=== PATIENT | female | born 1975 | race Hispanic/Latino ===

== ENCOUNTER 2019-01-07 19:05 | Emergency (ER) | payer OTHER ==
[2019-01-07 19:05] VITALS: BMI 21.9
[2019-01-07 20:51] VITALS: RESP 18
--- NOTE | 2019-01-07 22:40 | ED PDOC ---
HPI: Abdomen Time Seen by Provider: 01/07/19 21:57 Chief Complaint (Nursing): Abdominal Pain Chief Complaint (Provider): Abdominal Pain History Per: Patient History/Exam Limitations: no limitations Onset/Duration Of Symptoms: Days (2) Current Symptoms Are (Timing): Still Present Associated Symptoms: denies: Fever Additional Complaint(s): 43 year old female presents to the ED for an evaluation of right flank pain and abdominal pain onset for 2 days. Patient reports the pain is located on the right lower side of the stomach and today the pain radiated to her right flank. Previously, patient had a UTI with dysuria. However, she currently reports of dark urine only. Otherwise, patient denies fever, chills, nausea, vomiting or diarrhea. PMD: no family provider Abnormal Vaginal Bleeding: No Past Medical History Reviewed: Historical Data, Nursing Documentation, Vital Signs Vital Signs: Last Vital Signs Temp 98.8 F 01/07/19 20:48 Pulse 73 01/07/19 20:48 Resp 18 01/07/19 20:48 BP 121/75 01/07/19 20:48 Pulse Ox 98 01/07/19 20:48 Primary Care Provider: Epi Torres - Medical History PMH: Anemia Denies: Chronic Kidney Disease - Surgical History Surgical History: Endoscopy - Family History Family History: States: Unknown Family Hx - Social History Current smoker - smoking cessation education provided: No Alcohol: None Drugs: Denies - Home Medications Home Medications: Ambulatory Orders Medication Instructions Recorded Esomeprazole Magnesium [Nexium] 20 mg PO DAILY 08/07/17 Phenazopyridine HCl [Pyridium] 100 mg PO TID #6 tab 01/07/19 Sulfamethoxazole/Trimethoprim 1 tab PO BID #20 tab 01/07/19 [Bactrim DS 800 mg-160 mg] - Allergies Allergies/Adverse Reactions: Allergies Allergy/AdvReac Type Severity Reaction Status Date / Time No Known Allergies Allergy Verified 01/07/19 20:48 Review of Systems ROS Statement: Except As Marked, All Systems Reviewed And Found Negative Constitutional: Negative for: Fever, Chills Gastrointestinal: Positive for: Abdominal Pain. Negative for: Nausea, Vomiting, Diarrhea Genitourinary Female: Negative for: Dysuria Physical Exam - Reviewed Nursing Documentation Reviewed: Yes Vital Signs Reviewed: Yes - Physical Exam Appears: Positive for: Well, Non-toxic, No Acute Distress Head Exam: Positive for: ATRAUMATIC, NORMAL INSPECTION, NORMOCEPHALIC Skin: Positive for: Normal Color, Warm, Dry. Negative for: Rash Eye Exam: Positive for: EOMI, Normal appearance, PERRL ENT: Positive for: Normal ENT Inspection Neck: Positive for: Normal, Painless ROM Cardiovascular/Chest: Positive for: Regular Rate, Rhythm. Negative for: Murmur Respiratory: Positive for: Normal Breath Sounds. Negative for: Decreased Breath Sounds, Wheezing, Respiratory Distress Gastrointestinal/Abdominal: Positive for: Normal Exam, Soft. Negative for: Tenderness, Guarding, Rebound Back: Positive for: R CVA Tenderness (mild ). Negative for: L CVA Tenderness Extremity: Positive for: Normal ROM. Negative for: Tenderness, Pedal Edema, Deformity Neurological/Psych: Positive for: Awake, Alert, Normal Tone, Oriented (x3). Negative for: Motor/Sensory Deficits - ECG O2 Sat by Pulse Oximetry: 98 (RA) Pulse Ox Interpretation: Normal Medical Decision Making Medical Decision Making: Time: 2206 Impression: 43yo female with right flank pain Plan: Urine ED urine dipstick UA 23:33 Urine dip is indicative of a urinary tract infection. Patient was given an initial dose of Bactrim in the ED. She is stable and will be discharged with prescriptions for Bactrim and Pyridium. Return precautions provided. Scribe Attestation: Documented by Dejah Bell, acting as a scribe for Chandu Oneil MD Provider Scribe Attestation: All medical record entries made by the Scribe were at my direction and personally dictated by me. I have reviewed the chart and agree that the record accurately reflects my personal performance of the history, physical exam, medical decision making, and the department course for this patient. I have also personally directed, reviewed, and agree with the discharge instructions and disposition. Disposition - Clinical Impression Clinical Impression: UTI (urinary tract infection) - Patient ED Disposition Is Patient to be Admitted: No - Disposition Disposition: Routine/Home Disposition Time: 23:33 Condition: STABLE Prescriptions: Phenazopyridine HCl [Pyridium] 100 mg PO TID #6 tab Sulfamethoxazole/Trimethoprim [Bactrim DS 800 mg-160 mg] 1 tab PO BID #20 tab Instructions: Urinary Tract Infections in Adults Forms: [employer] ([place])
[2019-01-07] MEDS ORDERED: Tmp-Smz 800 mg-160 mg DS Tab PO STA (23:14)
[2019-01-07 23:20] LABS: SQUAMOUS EPITHIAL 1 /hpf (0-5); URINE BACTERIA RARE (<OCC); URINE BILIRUBIN NEGATIVE (NEGATIVE); URINE BLOOD NEGATIVE (NEGATIVE); URINE CLARITY SLIGHTY-CLOUDY (Clear); URINE COLOR YELLOW (YELLOW); URINE GLUCOSE (UA) NEG (NEGATIVE); URINE LEUKOCYTE ESTERASE NEG Leu/uL (Negative); URINE PROTEIN NEGATIVE (NEGATIVE); URINE UROBILINOGEN 0.2-1.0 mg/dL (0.2-1.0)
[2019-01-07] MEDS ORDERED: Tmp-Smz 800 mg-160 mg DS Tab ONE (23:28)
[2019-01-07 23:38] VITALS: BP 118/71; PULSE 70; TEMP 98.9
[2019-01-07 23:40] VITALS: O2SAT 98
== END 2019-01-07 23:33 | disposition home or self-care (01) ==
LOC: H.ER 19:05
DX: N39.0 Urinary tract infection, site not specified (principal)